=== PATIENT | female | born 1970 | race Caucasian/White ===

== ENCOUNTER 2019-06-19 13:47 | Inpatient (IN) ==
--- NOTE | 2019-06-19 14:19 | Emergency Department Note ---
ED Provider Note NAME: JOE DONIS AGE: 49 SEX: F ARRIVES VIA: Walk-In INFORMANT: Patient, spouse ED PROVIDER(S): Damian Brantley MD CHIEF COMPLAINT: Nausea, vomiting, RUQ abdominal pain IMPRESSION: Nausea, vomiting RUQ PLAN: Disposition: Admitted Condition: Good MEDICAL DECISION MAKING: Patient presented to the emergency department complaining of nausea and vomiting as well as abdominal pain. She has metastatic cancer. She was here the other day, hydrated and treated with antinausea medication. Despite using prescription antinausea medication at home she has been having a rough time keeping down fluids. She has had intermittent success with some solid food. She notes abdominal pain but declines analgesia. The patient was treated with Reglan and Benadryl. She felt some relief. She was hydrated with saline. The patient had an unremarkable CBC and chemistry panel. Her CT scan shows diffusely metastatic disease including carcinomatosis. There is no obstruction. Given the fact that she is unable to tolerate normal oral intake despite multiple nausea medications at home I discussed further management in the hospital. The patient and significant other were in agreement. I did consult with Dr. Aj Anderson. Evaluated the patient in the emergency department and brought her into the hospital for further treatment. Triage Nursing notes reviewed and agree them. Additional history obtained from spouse Prior medical records reviewed. Last visit was hydrated. Vital Signs: reviewed and remarkable for no significant abnormalities Differential diagnosis: Complication of chemo, liver metastatic complications, appendicitis, ovarian cyst, ovarian torsion, ectopic , TOA, PID, infections, diverticulitis, UTI, obstruction, mesenteric ischemia, aortic pathology, inflammatory bowel disease, renal colic, PUD, pancreatitis, biliary pathology, hernia, volvulus, constipation, as well as other pathologies. ER treatment provided: IV normal saline IV Benadryl IV Reglan Diagnostics interpreted by me: Laboratory studies: [See below] an unremarkable CBC and chemistry panel. Imaging studies: CT scan of the abdomen and pelvis with IV contrast: 1. No evidence of bowel obstruction. No evidence of free air 2. Multiple pulmonary nodules indicative of metastatic disease 3. Small right pleural effusion 4. Extensive hepatic metastasis 5. Extensive abdominal carcinomatosis 6. Cutaneous soft tissue nodules consistent with metastatic disease 7. 11 mm lytic lesion within the left symphysis pubis Consultation(s): [none] HPI: The patient is a 49 year old female who presents to the Emergency Room with complaints of nausea and vomiting. This started last week and is not improving. The patient also notes the following associated symptoms, diarrhea, RUQ and LLQ abdominal pain. The patient has tried rx nausea medications without relief. Current pain is rated as 4/10. She has metastatic melanoma. Was here two days ago and hydrated. Pain increased since. Pt denies LOC, headache, fevers, chills, diaphoresis, visual changes, neck pain, chest pain, breathing difficulties, back pain, melena, hematochezia, urinary symptoms, numbness, weakness, lymphadenopathy, rash, or other complaints. ROS: See above HPI for pertinent positives & negatives. A total of 10 systems reviewed and were otherwise negative. PAST MEDICAL HISTORY:Melanoma PAST SURGICAL HISTORY:See Below FAMILY HISTORY:See Below SOCIAL HISTORY: HOME MEDICATIONS:See Below ALLERGIES:See Below VITALS:See Below PHYSICAL EXAMINATION: GENERAL: Awake, alert, very uncomfortable-appearing, in no distress HENT: Normocephalic, atraumatic. Oropharynx unremarkable. EYES: Normal conjunctiva. Sclera non-icteric. NECK: Inspection normal. Non-tender. Supple. No nuchal rigidity. FROM. No masses. RESPIRATORY: Clear to auscultation. No wheezes. No rales. Normal respiratory effort. CARDIAC: Normal rate. Normal rhythm. No murmurs. No rubs. Extremities warm and well perfused. Pulses equal. No JVD. GI: Soft, non-distended. RUQ, LLQ tenderness to palpation. No rebound or guarding. No masses. RECTAL: Deferred. MUSCULOSKELETAL: Atraumatic. Chest examination reveals no tenderness. The back is symmetrical on inspection without obvious abnormality. There is no CVA ten derness to palpation. No joint edema. LOWER EXTREMITIES: Calves are equal size bilaterally and non-tender. No edema. No discoloration. NEURO: Normal sensorium. No sensory or motor deficits noted. SKIN: No rash or jaundice noted. ED COURSE: Procedures: [none] [Critical Care:] [None] Impression & Plan Nausea & vomiting, Right upper quadrant abdominal pain, Metastatic melanoma Past Med/Surg History Medical History (Updated 06/19/19 @ 22:14 by Damian Brantley MD) Blind right eye Metastatic melanoma (Acute) Surgical History H/O thyroidectomy Social History Preferred Language: Croatian Communication Ability: Effective Beliefs That Will Affect Care: None Current Living Situation: Significant Other Feels Safe at Home: Yes Smoking Status: Current every day smoker Tobacco Type: cigarettes ; Cigarettes Per Day: 10 ; Hx Alcohol Use: No Results & Data Vital Signs Vital Signs - 24 hr 06/19/19 13:49 06/19/19 14:40 06/19/19 16:12 Temperature 36.4 C L Temperature Source Oral Pulse Rate 90 Pulse Rate [Finger] 83 Respiratory Rate 19 20 Respiratory Effort / Characteristics Non-Labored Spontaneous Respiratory Depth Normal Blood Pressure 128/85 Blood Pressure [Right Arm] 123/75 Blood Pressure Mean 99 Blood Pressure Mean [Right Arm] 91 Pulse Oximetry 99 98 97 Oxygen Delivery Method Room Air Room Air Room Air Sepsis Recent Fever Within 48 Hours No Sepsis Action Taken by Nursing No Action Required Laboratory Data Result diagrams: 06/19/19 14:40 06/19/19 14:40 Lab Results 06/19/19 06/19/19 Range/Units 14:40 14:40 WBC 8.71 (4.8-10.8) K/uL RBC 4.46 (4.2-5.4) M/uL Hgb 13.3 (12.0-16.0) g/dL Hct 40.0 (37-47) % MCV 89.7 (80-100) fL MCH 29.8 (25-34) pg MCHC 33.3 (32-36) g/dL RDW Std Deviation 46.1 (36.4-46.3) fL RDW Coeff of [place] 14.0 (11.5-14.5) % Plt Count 399 (130-400) K/uL MPV 10.2 (7.4-10.4) fL Immature Gran % (Auto) 0.3 % Neut % (Auto) 66.0 % Lymph % (Auto) 19.1 % [place] % (Auto) 11.5 % Eos % (Auto) 2.5 % Baso % (Auto) 0.6 % Immature Gran # (Auto) 0.03 H (0.00-0.02) K/uL Neut # (Auto) 5.75 (1.4-6.5) K/uL Lymph # (Auto) 1.66 (1.2-3.4) K/uL [place] # (Auto) 1.00 H (0.11-0.59) K/uL Eos # (Auto) 0.22 (0-0.5) K/uL Baso # (Auto) 0.05 (0-0.2) K/uL Sodium 136 (136-145) mmol/L Potassium 3.8 (3.5-5.1) mmol/L Chloride 105 (98-107) mmol/L Carbon Dioxide 23 (21-32) mmol/L Anion Gap 8.0 (3-11) BUN 12 (7-18) mg/dl Creatinine 0.89 (0.6-1.2) mg/dl Est Cr Clr Drug Dosing 59.8 ml/min Est GFR ( Amer) 87.6 Est GFR (Non-Af Amer) 75.6 BUN/Creatinine Ratio 13.3 (10-20) Glucose 81 (70-99) mg/dl Calcium 8.8 (8.5-10.1) mg/dl Total Bilirubin 0.4 (0.2-1) mg/dl AST 59 H (15-37) U/L ALT 55 (12-78) U/L Alkaline Phosphatase 137 H (45-117) U/L Total Protein 7.3 (6.4-8.2) gm/dl Albumin 3.4 (3.4-5.0) gm/dl Globulin 3.9 (2.5-4.0) gm/dl Albumin/Globulin Ratio 0.9 (0.9-2) Lipase 39 L (73-393) U/L Administered Medications Sodium Chloride (Nss 1000ml) 1,000 mls @ 80 mls/hr IV .[id number] YASHIRA Stop: 07/19/19 20:59 Last Admin: 06/19/19 21:31 Dose: 80 mls/hr Documented by: [id number] Morphine Sulfate (Morphine Sulfate) 2 mg IV Q4H PRN PRN Reason: Pain Stop: 07/03/19 20:59 Last Admin: 06/19/19 21:31 Dose: 2 mg Documented by: [id number] Discontinued Medications Diphenhydramine HCl (Benadryl) 12.5 mg IV NOW STA Stop: 06/19/19 14:21 Last Admin: 03/15/20 14:40 Dose: 12.5 mg Documented by: [id number] Sodium Chloride (Nss 1000ml) 500 mls @ 999 mls/hr IV .Q31M ONE Stop: 06/19/19 16:48 Last Infusion: 06/19/19 17:33 Dose: 0 mls/hr Documented by: [id number] Admin: 06/19/19 16:58 Dose: 999 mls/hr Documented by: [id number] Sodium Chloride (Nss 1000ml) 1,000 mls @ 125 mls/hr IV .Q8H STA Stop: 06/20/19 00:17 Last Infusion: 06/19/19 21:36 Dose: 0 mls/hr Documented by: [id number] Admin: 06/19/19 17:33 Dose: 125 mls/hr Documented by: [id number] Ioversol (Optiray 320 100ml) 94 ml IV ONCE PRN PRN Reason: Interaction Checking Stop: 06/23/19 15:41 Last Admin: 06/19/19 15:42 Dose: 94 ml Documented by: [id number] Metoclopramide HCl (Reglan) 10 mg IV NOW STA Stop: 06/19/19 14:21 Last Admin: 06/19/19 14:41 Dose: 10 mg Documented by: [id number] Prochlorperazine (Compazine) Confirm Administered Dose 10 mg .ROUTE .STK-MED ONE Stop: 06/19/19 18:22 Last Admin: 06/19/19 18:24 Dose: 10 mg Documented by: [id number] Discharge Plan Visit Data *Final* Discharge Date/Time: 06/19/19 19:45 Chief Complaint: Vomiting Stated Complaint: VOMITING, UPSET STOMACH ED Provider: Damian Brantley Discharge Problem: Nausea & vomiting, Right upper quadrant abdominal pain, Metastatic melanoma Patient Disposition: Admitted As Inpatient Discharge Instructions Interventions: ED Discharge Assessment Last Done: 06/19/19 19:45
[2019-06-19] MEDS ORDERED: DiphenhydrAMINE HCL 50 MG/ML VIAL IV STA (14:20)
[2019-06-19] MEDS ORDERED: METOCLOPRAMIDE HCL INJ 5 MG/ML 2 ML VIAL IV STA (14:20)
[2019-06-19 14:49] LABS: Basophils # (auto) 0.05 K/uL (0-0.2); Basophils % (auto) 0.6 %; Eosinophils # (auto) 0.22 K/uL (0-0.5); Eosinophils % (auto) 2.5 %; Hemoglobin 13.3 g/dL (12.0-16.0); Immature Granulocytes # (auto) 0.03 K/uL (0.00-0.02); Immature Granulocytes % (auto) 0.3 %; Lymphocytes # (auto) 1.66 K/uL (1.2-3.4); Lymphocytes % (auto) 19.1 %; Mean Corpuscular Hemoglobin 29.8 pg (25-34); Mean Corpuscular Hgb Conc 33.3 g/dL (32-36); Mean Corpuscular Volume 89.7 fL (80-100); Mean Platelet Volume 10.2 fL (7.4-10.4); Monocytes % (auto) 11.5 %; Neutrophils # (auto) 5.75 K/uL (1.4-6.5); Platelet Count 399 K/uL (130-400); RDW Standard Deviation 46.1 fL (36.4-46.3); Red Blood Count 4.46 M/uL (4.2-5.4); White Blood Count 8.71 K/uL (4.8-10.8)
[2019-06-19 15:06] LABS: Albumin Level 3.4 gm/dl (3.4-5.0); BUN Creatinine Ratio 13.3 (10-20); Calcium 8.8 mg/dl (8.5-10.1); Creatinine Clr Calc Pharmacy 59.8 ml/min; Est GFR (African American) 87.6; Est GFR (Non-African American) 75.6; Potassium 3.8 mmol/L (3.5-5.1)
[2019-06-19 15:08] LABS: Albumin Globulin Ratio 0.9 (0.9-2); Bilirubin,Total 0.4 mg/dl (0.2-1); Globulin 3.9 gm/dl (2.5-4.0); Total Protein 7.3 gm/dl (6.4-8.2)
[2019-06-19] MEDS ORDERED: IOVERSOL 100ml IV PRN (15:42)
--- NOTE | 2019-06-19 16:00 | CT Scan Report ---
CT abd pelvis IV con only CLINICAL HISTORY: metastatic melanoma, RUQ LLQ pain, vomiting COMPARISON STUDY: None. TECHNIQUE: The patient was scanned in a dynamic helical fashion during intravenous administration of 94 cc of Optiray 320. A dose lowering technique was utilized adhering to the principles of ALARA. CT DOSE: 266.00 mGy.cm FINDINGS: Lower chest: There are multiple bilateral pulmonary nodules consistent with metastatic disease. The l argest is a pleural-based lesion within the lingula measuring 17 mm. There are bilateral lower lung z one groundglass opacities, likely infectious/inflammatory. There is a small right pleural effusion. Liver: There are multiple space-occupying hepatic masses consistent with widespread metastatic diseas e. The largest is a 6 cm right lobe hepatic lesion. There is trace perihepatic fluid. There is capsular retraction the ri ght lobe of the liver, and there is a 15 mm right hepatic lobe calcification, possibly treatment rela karsten. Gallbladder: Unremarkable. Spleen: Normal in size and attenuation. Pancreas: Unremarkable. Adrenal glands: There is a 3 cm left adrenal mass, likely metastatic. Kidneys: There is symmetric renal cortical enhancement. The kidneys are normal in size without hydron ephrosis. Bowel: There are no transition zones indicate bowel obstruction. There is no evidence of acute divert iculitis. Peritoneum: There is extensive abdominal carcinomatosis with multiple peritoneal nodules as well as l arge pelvic tumor implants. The largest single nodule measures 7 cm. There is omental caking measurin g 3 cm in thickness. There is trace ascites Vasculature: The abdominal aorta is normal in course and caliber. Adenopathy: None. Pelvic viscera: There are multiple pelvic tumor implants. Skeletal structures: There are subcutaneous nodules consistent with cutaneous metastatic disease. The re is a 11 mm lytic focus within the left symphysis pubis. IMPRESSION: 1. No evidence of bowel obstruction. No evidence of free air 2. Multiple pulmonary nodules indicative of metastatic disease 3. Small right pleural effusion 4. Extensive hepatic metastasis 5. Extensive abdominal carcinomatosis 6. Cutaneous soft tissue nodules consistent with metastatic disease 7. 11 mm lytic lesion within the left symphysis pubis ACT 112: Negative or not required by law. Electronically signed by: Greyson Goyal M.D. 06/19/2019 3:59 PM
[2019-06-19] MEDS ORDERED: SODIUM CHLORIDE 0.9% 1000ML 1,000 ML IV STA (16:18)
[2019-06-19] MEDS ORDERED: SODIUM CHLORIDE 0.9% 1000ML 500 ML IV ONE (16:18)
[2019-06-19] MEDS ORDERED: PROCHLORPERAZINE 5 MG/ML 2 ML VIAL ONE (18:21)
--- NOTE | 2019-06-19 19:17 | History & Physical Report ---
Date of Service June 19, 2019 Assessment & Plan (1) Nausea & vomiting: Presented to the ER with multiple episodes of nausea and vomiting associated with abdominal pain CT abd/pelvis showed no evidence of bowel obstruction. No evidence of free air. hepatic metastasis. Extensive abdominal carcinomatosis Received IV fluid and antiemetic in the ER We will continue IV fluid, pain control, and antiemetic Will start on clear liquid diet and advance as tolerated Monitor electrolyte Metastatic Melanoma Patient said chemo pills was placed on hold since she cannot tolerate anything by mouth CT abdomen and pelvics show hepatic metastases. Extensive abdominal carcinomatosis Cutaneous soft tissue nodules consistent with metastatic disease and 11 mm lytic lesion within the left symphysis pubis Follow-up with oncology outpatient Hypothyroidism Continue Levothyroxine DVT px on Lovenox subq Code Status Full code History of Present Illness Chief Complaint: Nausea/Vomiting Primary Care Provider: Adrian Collins MD 49 years old female with past medical history of malignant neoplasm asthma of thyroid gland, postsurgical hypothyroidism, major depression disorder, metastatic melanoma, Rosacea presented to the ER with chief complaint of nausea and vomiting and abdominal pain. Few days ago patient was in the hospital for for similar symptoms, she said she was given IV fluid, managed her pain and anti-emetic and sent home. She said that since Thursday she has been having recurrent episode of vomiting. She said that today her symptoms seems to get worse. She said that just by drinking water causing her to vomit. She also had some episode of diarrhea that seems to improve. She said that she was getting chemo pills last week that put on hold because she cannot tolerate anything by mouth. Denies any recent traveling or sick contacts. Denies any chest pain, palpitation, dizziness, and shortness of breath. Allergies Allergy/AdvReac Type Severity Reaction Status Date / Time No Known Allergies Allergy Unverified 06/19/19 14:55 Home Medications Home Medications Medication Instructions Recorded Confirmed Type levothyroxine 88 mcg PO QAM 06/16/19 06/19/19 History lorazepam 0.5 mg PO UD 06/16/19 06/19/19 History metoclopramide HCl 10 mg PO BID 06/16/19 06/19/19 History prochlorperazine maleate 10 mg PO Q6H PRN 06/16/19 06/19/19 History scopolamine base 1 patch TRANSDERMAL Q3D 06/16/19 06/19/19 History Past Med/Surg History Medical History (Updated 06/19/19 @ 22:14 by Damian Brantley MD) Blind right eye Metastatic melanoma (Acute) Surgical History H/O thyroidectomy Social History Preferred Language: Thai Communication Ability: Effective Beliefs That Will Affect Care: None Current Living Situation: Significant Other Feels Safe at Home: Yes Smoking Status: Current every day smoker Tobacco Type: cigarettes ; Cigarettes Per Day: 10 ; Hx Alcohol Use: No Review of Systems Review of Systems: All systems reviewed & are unremarkable except as noted in HPI & below Physical Exam Physical Exam: General- No acute distress Head- atraumatic Eyes- PERRL, EOMI, ENT- oropharynx clear Neck- supple, no JVD Lungs- clear to auscultation Heart- regular rhythm; no murmur Abdomen- normal bowel sounds, soft, +mild tender Extremities- no calf tenderness Neuro- alert, oriented x 3; PERRL, EOMI; no facial palsy; no dysarthria Skin- warm & dry Results & Data Vital Signs (Past 12 Hours) Vital Signs Temp Pulse Pulse Resp BP BP Pulse Ox 06/19/19 19:14 85 18 140/74 96 06/19/19 18:22 83 20 142/84 H 98 06/19/19 16:12 83 20 123/75 97 06/19/19 14:40 98 06/19/19 13:49 36.4 C L 90 19 128/[address] abd pelvis IV con only CLINICAL HISTORY: metastatic melanoma, RUQ LLQ pain, vomiting COMPARISON STUDY: None. TECHNIQUE: The patient was scanned in a dynamic helical fashion during intravenous administration of 94 cc of Optiray 320. A dose lowering technique was utilized adhering to the principles of ALARA. CT DOSE: 266.00 mGy.cm FINDINGS: Lower chest: There are multiple bilateral pulmonary nodules consistent with metastatic disease. The largest is a pleural-based lesion within the lingula measuring 17 mm. There are bilateral lower lung zone groundglass opacities, likely infectious/inflammatory. There is a small right pleural effusion. Liver: There are multiple space-occupying hepatic masses consistent with widespread metastatic disease. The largest is a 6 cm right lobe hepatic lesion. There is trace perihepatic fluid. There is capsular retraction the right lobe of the liver, and there is a 15 mm right hepatic lobe calcification, possibly treatment related. Gallbladder: Unremarkable. Spleen: Normal in size and attenuation. Pancreas: Unremarkable. Adrenal glands: There is a 3 cm left adrenal mass, likely metastatic. Kidneys: There is symmetric renal cortical enhancement. The kidneys are normal in size without hydronephrosis. Bowel: There are no transition zones indicate bowel obstruction. There is no evidence of acute diverticulitis. Peritoneum: There is extensive abdominal carcinomatosis with multiple peritoneal nodules as well as large pelvic tumor implants. The largest single nodule measures 7 cm. There is omental caking measuring 3 cm in thickness. There is trace ascites Vasculature: The abdominal aorta is normal in course and caliber. Adenopathy: None. Pelvic viscera: There are multiple pelvic tumor implants. Skeletal structures: There are subcutaneous nodules consistent with cutaneous metastatic disease. There is a 11 mm lytic focus within the left symphysis pubis. IMPRESSION: 1. No evidence of bowel obstruction. No evidence of free air 2. Multiple pulmonary nodules indicative of metastatic disease 3. Small right pleural effusion 4. Extensive hepatic metastasis 5. Extensive abdominal carcinomatosis 6. Cutaneous soft tissue nodules consistent with metastatic disease 7. 11 mm lytic lesion within the left symphysis pubis ACT 112: Negative or not required by law. Electronically signed by: Greyson Goyal M.D. 06/19/2019 3:59 PM Dictated: 06/19/19 1549 Transcribed: 06/19/19 1549 Code Status & VTE Plan VTE Prophylaxis Plan VTE Prophylaxis will be ordered: Yes
[2019-06-19] MEDS ORDERED: KETOROLAC TROMETHAMINE 15 MG/ML VIAL IV PRN (21:00)
[2019-06-19] MEDS ORDERED: PROCHLORPERAZINE 10 MG in SYRINGE 8 ML IV PRN (21:00)
[2019-06-19] MEDS ORDERED: LORazepam 0.5 MG TAB PO PRN (21:00)
[2019-06-19] MEDS: MoRPHine SULFATE 2 MG/ML CARP IV PRN (21:31)
[2019-06-19] MEDS: SODIUM CHLORIDE 0.9% 1000ML 1,000 ML IV SCH (21:31)
[2019-06-20 06:04] LABS: BUN Creatinine Ratio 13.7 (10-20); Calcium 7.9 mg/dl (8.5-10.1); Creatinine Clr Calc Pharmacy 64.1 ml/min; Est GFR (African American) 95.3; Est GFR (Non-African American) 82.2; Potassium 3.6 mmol/L (3.5-5.1)
[2019-06-20] MEDS ORDERED: LEVOTHYROXINE SODIUM 88 MCG TABLET PO SCH (06:30)
[2019-06-20 06:57] LABS: Appearance Urine Clear (Clear); Blood Urine Trace (Negative); Color Urine Yellow; Glucose Urine UA Negative (Negative); Ketones Urine 2+ (Negative); Leukocyte Esterase Urine Negative (Negative); Nitrite Urine Negative (Negative); Protein Urine Negative (Negative); Specific Gravity Urine 1.025 (1.000-1.030); Urobilinogen Urine Negative (Negative); pH Urine 5.5 (4.5-7.5)
[2019-06-20 07:08] LABS: Bilirubin Urine Negative (Negative); Ictotest Urine Negative (Negative)
[2019-06-20 07:09] LABS: Epithelial Cell Urine >30 /lpf (0-5)
[2019-06-20 07:10] LABS: Bacteria Urine 2+ (Negative)
[2019-06-20] MEDS: METOCLOPRAMIDE HCL INJ 5 MG/ML 2 ML VIAL IV PRN ×2 (07:25→15:47)
[2019-06-20] MEDS ORDERED: ENOXAPARIN INJ 40 MG/0.4 ML SYR SQ SCH (09:00)
[2019-06-20] MEDS: SODIUM CHLORIDE 0.9% 1000ML 1,000 ML IV SCH (10:23)
--- NOTE | 2019-06-20 18:02 | Hospitalist Progress Note ---
Date of Service June 20, 2019 Assessment & Plan (1) Nausea & vomiting: Presented to the ER with multiple episodes of nausea and vomiting associated with abdominal pain CT abd/pelvis showed no evidence of bowel obstruction. No evidence of free air. hepatic metastasis. Extensive abdominal carcinomatosis Received IV fluid and antiemetic in the ER Continue IV fluid, pain control, and antiemetic Diet advanced to full liquid as tolerated Monitor electrolyte Metastatic Melanoma Patient said chemo pills was placed on hold since she cannot tolerate anything by mouth CT abdomen and pelvics show hepatic metastases. Extensive abdominal carcinomatosis Cutaneous soft tissue nodules consistent with metastatic disease and 11 mm lytic lesion within the left symphysis pubis case discussed with her oncology Dr. Dia at [facility] in [facility] who would like her to transfer to [place] for eval Pt will be transferred to [facility] under the care of Dr. Dia I explained to family that pt is poor candidate family understands also that they might get a bill for the ambulance services Pt and family agreed with the transfer Hypothyroidism Continue Levothyroxine DVT px on Lovenox subq Code Status Full code Disposition Transfer to [facility] Accepting physician Dr. Dia Admission and Anticipated Discharge Date Admission Date: June 19, 2019 Subjective Pt was seen and examined Lying in bed with no distress Pt said that n/v improves She said that she had 3 episodes of diarrhea She tolerated full liquid diet Received call from her oncology at [place] who wants her to transfer for eval Denies any chest pain, palpitation and SOB Physical Exam Physical Exam: General- No acute distress Head- atraumatic Eyes- PERRL, EOMI, ENT- oropharynx clear Neck- supple, no JVD Lungs- clear to auscultation Heart- regular rhythm; no murmur Abdomen- normal bowel sounds, soft, +mild tender Extremities- no calf tenderness Neuro- alert, oriented x 3; PERRL, EOMI; no facial palsy; no dysarthria Skin- warm & dry Results & Data ([facility]) Vital Signs (Past 12 Hours) Vital Signs Temp Pulse Resp BP Pulse Ox 06/20/19 16:16 37.0 C 89 18 145/78 H 97 06/20/19 11:20 36.7 C 88 20 139/83 97 06/20/19 07:16 36.4 C L 83 18 136/78 95
--- NOTE | 2019-06-20 18:21 | Discharge Summary ---
Date of Service June 20, 2019 Admission HPI Per Admitting Provider 49 years old female with past medical history of malignant neoplasm asthma of thyroid gland, postsurgical hypothyroidism, major depression disorder, metastatic melanoma, Rosacea presented to the ER with chief complaint of nausea and vomiting and abdominal pain. Few days ago patient was in the hospital for for similar symptoms, she said she was given IV fluid, managed her pain and anti-emetic and sent home. She said that since Thursday she has been having recurrent episode of vomiting. She said that today her symptoms seems to get worse. She said that just by drinking water causing her to vomit. She also had some episode of diarrhea that seems to improve. She said that she was getting chemo pills last week that put on hold because she cannot tolerate anything by mouth. Denies any recent traveling or sick contacts. Denies any chest pain, palpitation, dizziness, and shortness of breath. Admission Exam Per Admitting Provider General- No acute distress Head- atraumatic Eyes- PERRL, EOMI, ENT- oropharynx clear Neck- supple, no JVD Lungs- clear to auscultation Heart- regular rhythm; no murmur Abdomen- normal bowel sounds, soft, +mild tender Extremities- no calf tenderness Neuro- alert, oriented x 3; PERRL, EOMI; no facial palsy; no dysarthria Skin- warm & dry Principal Diagnosis Nausea & vomiting Metastatic Melanoma Hypothyroidism Discharge Exam General- No acute distress Head- atraumatic Eyes- PERRL, EOMI, ENT- oropharynx clear Neck- supple, no JVD Lungs- clear to auscultation Heart- regular rhythm; no murmur Abdomen- normal bowel sounds, soft, +mild tender Extremities- no calf tenderness Neuro- alert, oriented x 3; PERRL, EOMI; no facial palsy; no dysarthria Skin- warm & dry Discharge Data Allergies Allergy/AdvReac Type Severity Reaction Status Date / Time No Known Allergies Allergy Unverified 06/19/19 14:55 Consultations 06/19/19 17:04 ED Decision to Admit Stat Ordered Studies 06/19/19 14:20 CT abd pelvis IV con only Stat CT abd pelvis IV con only CLINICAL HISTORY: metastatic melanoma, RUQ LLQ pain, vomiting COMPARISON STUDY: None. TECHNIQUE: The patient was scanned in a dynamic helical fashion during intravenous administration of 94 cc of Optiray 320. A dose lowering technique was utilized adhering to the principles of ALARA. CT DOSE: 266.00 mGy.cm FINDINGS: Lower chest: There are multiple bilateral pulmonary nodules consistent with metastatic disease. The largest is a pleural-based lesion within the lingula measuring 17 mm. There are bilateral lower lung zone groundglass opacities, likely infectious/inflammatory. There is a small right pleural effusion. Liver: There are multiple space-occupying hepatic masses consistent with widespread metastatic disease. The largest is a 6 cm right lobe hepatic lesion. There is trace perihepatic fluid. There is capsular retraction the right lobe of the liver, and there is a 15 mm right hepatic lobe calcification, possibly treatment related. Gallbladder: Unremarkable. Spleen: Normal in size and attenuation. Pancreas: Unremarkable. Adrenal glands: There is a 3 cm left adrenal mass, likely metastatic. Kidneys: There is symmetric renal cortical enhancement. The kidneys are normal in size without hydronephrosis. Bowel: There are no transition zones indicate bowel obstruction. There is no evidence of acute diverticulitis. Peritoneum: There is extensive abdominal carcinomatosis with multiple peritoneal nodules as well as large pelvic tumor implants. The largest single nodule measures 7 cm. There is omental caking measuring 3 cm in thickness. There is trace ascites Vasculature: The abdominal aorta is normal in course and caliber. Adenopathy: None. Pelvic viscera: There are multiple pelvic tumor implants. Skeletal structures: There are subcutaneous nodules consistent with cutaneous metastatic disease. There is a 11 mm lytic focus within the left symphysis pubis. IMPRESSION: 1. No evidence of bowel obstruction. No evidence of free air 2. Multiple pulmonary nodules indicative of metastatic disease 3. Small right pleural effusion 4. Extensive hepatic metastasis 5. Extensive abdominal carcinomatosis 6. Cutaneous soft tissue nodules consistent with metastatic disease 7. 11 mm lytic lesion within the left symphysis pubis ACT 112: Negative or not required by law. Electronically signed by: Greyson Goyal M.D. 06/19/2019 3:59 PM Dictated: 06/19/191548 Transcribed: 06/19/191548 Hospital Course (1) Nausea & vomiting: Presented to the ER with multiple episodes of nausea and vomiting associated with abdominal pain CT abd/pelvis showed no evidence of bowel obstruction. No evidence of free air. hepatic metastasis. Extensive abdominal carcinomatosis Received IV fluid and antiemetic in the ER Continue IV fluid, pain control, and antiemetic Diet advanced to full liquid as tolerated Monitor electrolyte Metastatic Melanoma Patient said chemo pills was placed on hold since she cannot tolerate anything by mouth CT abdomen and pelvics show hepatic metastases. Extensive abdominal carcinomatosis Cutaneous soft tissue nodules consistent with metastatic disease and 11 mm lytic lesion within the left symphysis pubis case discussed with her oncology Dr. Dia at [facility] who would like her to transfer to [place] for eval Pt will be transferred to [facility] under the care of Dr. Dia I explained to family that pt is poor candidate family understands also that they might get a bill for the ambulance services Pt and family agreed with the transfer Hypothyroidism Continue Levothyroxine DVT px on Lovenox subq Code Status Full code Disposition Transfer to [facility] Accepting physician Dr. Dia Total Time Total Time Spent Total Time Spent (In Minutes): 40 minutes Total Time Includes: Examination of the Patient, Discharge Planning, Medication Reconciliation, Communication With Other Providers and Other Discharge Plan Discharge Items Patient Disposition: Transfer Acute Care Hospital Reason For Visit: NAUSEA/VOMITING Discharge Diagnosis: Nausea & vomiting Metastatic Melanoma Hypothyroidism Activity: Resume your previous activity Non-emergency contact: Primary Care Provider and Oncologist Call non-emergency contact if: you have any medication questions and your temperature is above 101 Follow-up/Referrals: Adrian Collins MD [Primary Care Provider] - Diet: Full liquid Addtl Attending Provider Instructions: Transfer to her Oncology in [facility] Accepting physician Dr. Dia (her oncology) Continue IV fluid with NSS at 80cc during transport Continue IV Compazine prn during transport Monitor her electrolytes Pending Studies at Discharge: No Stand-Alone Forms: [facility] Skilled Items Patient informed of condition?: Yes DNR: No Discharge Level of Care: Other Communicable Disease: No Discharge Prognosis: Stable Lines: Peripheral IV Urinary Catheter: No Medications and DC Order Prescriptions: Continued prochlorperazine maleate 10 mg tablet 10 mg PO Q6H PRN (Reason: Nausea) RF: 0 levothyroxine 88 mcg tablet 88 mcg PO QAM RF: 0 lorazepam 0.5 mg tablet 0.5 mg PO UD RF: 0 scopolamine base 1 mg over 3 days patch 3 day 1 patch transdermal Q3D RF: 0 metoclopramide HCl 10 mg tablet 10 mg PO BID RF: 0 Discharge Orders: Discharge Order (Routine); Ordered 06/20/19 Ordered By: Aj Anderson Admission Data Admit Date/Time: 06/19/19 17:46 Attending Provider: Aj Anderson Admit Provider: Aj Anderson Primary Care Provider: Adrian Collins Other Providers: Aj Anderson
[2019-06-20] MEDS: MoRPHine SULFATE 2 MG/ML CARP IV PRN (21:15)
== END 2019-06-20 21:42 | disposition short-term general hospital (02) | DRG 845 ==
LOC: ED 13:47 → 4W 17:46